=== PATIENT | female | born 1995 | race Caucasian/White ===

== ENCOUNTER 2025-05-02 15:22 | Outpatient (CLI) | payer SELFPAY ==
[2025-05-02 22:17] LABS: Strep A DNA Probe* NOT DETECTED (Not Detectd)
== END 2025-05-02 15:23 | disposition home or self-care (01) ==
LOC: KYNREF 15:22
PROVIDERS: Visit Provider Nurse Practitioner Family
DX: J02.9 Acute pharyngitis, unspecified (principal)
CPT/HCPCS: 87651